=== PATIENT | female | born 1985 | race Two or more races ===

== ENCOUNTER 2023-07-14 14:10 | Emergency (ER) | payer MEDICAID ==
[~2023-07-14] VITALS: Ht 162.6 cm; Wt 120.0 kg
[2023-07-14 15:18] VITALS: BP 127/74; PULSE 93; RESP 18; TEMP 97.4; O2SAT 100
[2023-07-14] MEDS ORDERED: PRED20TA2 PO (16:30)
[2023-07-14] MEDS ORDERED: AZIT500T66 PO (16:30)
== END 2023-07-14 16:41 | disposition home or self-care (01) ==
LOC: ER 14:10
DX: J45.909 Unspecified asthma, uncomplicated (principal); H66.92 Otitis media, unspecified, left ear
CPT/HCPCS: 71045